=== PATIENT | female | born 1985 | race Caucasian/White ===

== ENCOUNTER → 2016-03-29 | Emergency (ER) | payer OTHER ==
[~2016-03-29] VITALS: Ht 154.9 cm; Wt 73.8 kg
[~2016-03-29] MED LIST: KEFLEX500 MG PO; LEVONO-E ESTRA1 EACH PO; MOTRIN800 MG PO; NOHOMEMEDS; PYRIDIUM100 MG PO
[2016-03-29 06:23] LABS: ADD MIUA? YES; BILIRUBIN NEGATIVE; BLOOD MODERATE; COLOR YELLOW ((YELLOW)); GLUCOSE (STRIP) 100; KETONES NEGATIVE; LEUKOCYTES MODERATE; NITRITE NEGATIVE; PROTEIN (STRIP) TRACE; SPECIFIC GRAVITY 1.029 (1.000-1.030)
[2016-03-29 06:29] LABS: BACTERIA RARE /HPF; EPITHELIAL CELLS 2+ /HPF; MUCUS 1+ /LPF; UCUL ADDED? YES; WHITE BLOOD CELLS TNTC /HPF (0-5)
[2016-03-29 06:36] LABS: HEMATOCRIT 37.7 % (36.0-46.0); MCH 28.9 PG (29.0-34.0); MCHC 34.2 G/DL (30.0-36.0); MCV 84.3 FL (83-99); MEAN PLAT.VOLUME 11.1 uM^3 (9.5-12.4); PLATELET COUNT 215 K/uL (156-360); RBC DIS.WIDTH-CV 15.1 % (11.8-14.6); RBC DIS.WIDTH-SD 46.2 % (39-53); RED BLOOD COUNT 4.47 M/uL (3.80-5.20); WHITE BLOOD COUNT 8.4 K/uL (4.1-10.2)
[2016-03-29 06:47] LABS: CHLORIDE 108 mEq/L (99-109)
[2016-03-29 06:48] LABS: POTASSIUM 3.9 mEq/L (3.7-5.4); SODIUM 141 mEq/L (136-147)
[2016-03-29 06:49] LABS: GLUCOSE 126 mg/dL (70-99)
[2016-03-29 06:51] LABS: ANION GAP 8 MEQ/L (2-14)
[2016-03-29 06:53] LABS: GFR ESTIMATE (CALCULATED) > 59 mL/min/
[2016-03-29 06:54] LABS: UREA NITROGEN (BUN) 11 mg/dL (9-23)
[2016-03-29 07:02] LABS: QUANTITATIVE HCG < 4.0 MIU/ML
[2016-03-29 07:32] VITALS: BP 156/98
== END | disposition home or self-care (01) ==
LOC: EME 05:56
DX: N39.0 Urinary tract infection, site not specified (principal); Z87.440 Personal history of urinary (tract) infections; F17.200 Nicotine dependence, unspecified, uncomplicated; Z71.6 Tobacco abuse counseling
CPT/HCPCS: 80048; 81003; 84702; 85027; 87077; 87086; 87186; 99281; 99284

== ENCOUNTER 2016-06-09 22:22 | Emergency (ER) | payer OTHER ==
[~2016-06-09] VITALS: Ht 154.9 cm; Wt 73.4 kg
[2016-06-09 23:32] LABS: HEMATOCRIT 37.9 % (36.0-46.0); MCH 29.4 PG (29.0-34.0); MCHC 34.3 G/DL (30.0-36.0); MCV 85.7 FL (83-99); MEAN PLAT.VOLUME 10.7 uM^3 (9.5-12.4); PLATELET COUNT 196 K/uL (156-360); RBC DIS.WIDTH-CV 14.1 % (11.8-14.6); RBC DIS.WIDTH-SD 43.8 % (39-53); RED BLOOD COUNT 4.42 M/uL (3.80-5.20); WHITE BLOOD COUNT 9.3 K/uL (4.1-10.2)
[2016-06-09 23:35] LABS: CHLORIDE 106 mEq/L (99-109); POTASSIUM 4.3 mEq/L (3.7-5.4); SODIUM 140 mEq/L (136-147)
[2016-06-09 23:37] LABS: GLUCOSE 87 mg/dL (70-99)
[2016-06-09 23:38] LABS: ANION GAP 9 MEQ/L (2-14)
[2016-06-09 23:40] LABS: GFR ESTIMATE (CALCULATED) > 59 mL/min/
[2016-06-09 23:41] LABS: UREA NITROGEN (BUN) 9 mg/dL (9-23)
[2016-06-10 00:12] LABS: QUANTITATIVE HCG 34328.8 MIU/ML
[2016-06-10 00:59] VITALS: BP 142/78
[2016-06-10 04:12] LABS: CANDIDA DNA PROBE NEGATIVE; GARDNERELLA DNA PROBE NEGATIVE; INTERNAL CONTROL VALID? YES
[2016-06-12 13:54] LABS: CHLAMYDIA TRACHOMATIS NEGATIVE; NEISSERIA GONORRHOEAE NEGATIVE
== END 2016-06-10 00:59 | disposition home or self-care (01) ==
LOC: EME 22:22
PROVIDERS: Emergency Medicine
DX: O20.9 Hemorrhage in early pregnancy, unspecified (principal); O99.331 Smoking (tobacco) complicating pregnancy, first trimester; F17.200 Nicotine dependence, unspecified, uncomplicated; Z3A.08 8 weeks gestation of pregnancy
CPT/HCPCS: 76801; 80048; 84702; 85027; 86900; 86901; 87210; 87480; 87491; 87510; 87591; 87660; 99281; 99283

== ENCOUNTER 2016-08-07 19:36 | Inpatient (IN) | payer OTHER ==
[~2016-08-07] VITALS: Ht 154.9 cm; Wt 68.8 kg
[2016-08-07 21:13] LABS: HEMATOCRIT 43.3 % (36.0-46.0); MCH 28.3 PG (29.0-34.0); MCHC 33.5 G/DL (30.0-36.0); MCV 84.6 FL (83-99); MEAN PLAT.VOLUME 10.8 uM^3 (9.5-12.4); PLATELET COUNT 181 K/uL (156-360); RBC DIS.WIDTH-CV 13.2 % (11.8-14.6); RBC DIS.WIDTH-SD 41.1 % (39-53); RED BLOOD COUNT 5.12 M/uL (3.80-5.20); WHITE BLOOD COUNT 6.7 K/uL (4.1-10.2)
[2016-08-07 21:27] LABS: CHLORIDE 108 mEq/L (99-109); POTASSIUM 4.6 mEq/L (3.7-5.4); SODIUM 138 mEq/L (136-147)
[2016-08-07 21:29] LABS: GLUCOSE 112 mg/dL (70-99)
[2016-08-07 21:30] LABS: ANION GAP 6 MEQ/L (2-14)
[2016-08-07 21:31] LABS: TOTAL BILIRUBIN 0.5 mg/dL (0.0-1.0)
[2016-08-07 21:32] LABS: SERUM ETHYL ALCOHOL < 10 mg/dL
[2016-08-07 21:33] LABS: ALKALINE PHOSPHATASE 58 IU/L (3-129); GFR ESTIMATE (CALCULATED) > 59 mL/min/
[2016-08-07 21:34] LABS: UREA NITROGEN (BUN) 8 mg/dL (9-23)
[2016-08-08 00:09] VITALS: BP 126/85
[2016-08-08 00:16] LABS: ADD MIUA? YES; BILIRUBIN NEGATIVE; BLOOD NEGATIVE; COLOR YELLOW ((YELLOW)); GLUCOSE (STRIP) NEGATIVE; KETONES 5; LEUKOCYTES TRACE; NITRITE NEGATIVE; PROTEIN (STRIP) 100; SPECIFIC GRAVITY 1.018 (1.000-1.030)
[2016-08-08 00:27] LABS: BACTERIA 2+ /HPF; EPITHELIAL CELLS 1+ /HPF; HYALINE CASTS 0-5 /LPF; MUCUS 3+ /LPF; RED BLOOD CELLS 0-5 /HPF (0-5); WHITE BLOOD CELLS 0-5 /HPF (0-5)
[2016-08-08 01:02] LABS: ADD MEDTOX COMMENT Y; AMPHETAMINE NEGATIVE (500 ng/mL); BARBITURATES NEGATIVE (200 ng/mL); BENZODIAZEPINES NEGATIVE (150 ng/mL); COCAINE NEGATIVE (150 ng/mL); INTERNAL CONTROLS VALID? YES; METHADONE NEGATIVE (200 ng/mL); METHAMPHETAMINE NEGATIVE (500 ng/mL); OPIATES (MORPHINE) PRESUMPTIVE POSITIVE (100 ng/mL); OXYCODONE NEGATIVE (100 ng/mL); PHENCYCLIDINE NEGATIVE (25 ng/mL); PROPOXYPHENE NEGATIVE (300 ng/mL); THC CANNABINOIDS NEGATIVE (50 ng/mL); TRICYCLIC ANTIDEPRESSANTS NEGATIVE (300 ng/mL)
[2016-08-08 07:28] VITALS: BP 143/81
[2016-08-08 15:43] VITALS: BP 111/64
[2016-08-08 23:30] VITALS: BP 109/71
[2016-08-09 07:24] VITALS: BP 102/63
[2016-08-09 15:48] VITALS: BP 110/79
[2016-08-10 00:14] VITALS: BP 122/77
[2016-08-10 07:49] VITALS: BP 91/62
[2016-08-10] MEDS ORDERED: LAMICTAL25 MG PO (11:23)
[2016-08-10] MEDS ORDERED: LAMICTAL100 MG PO (11:23)
== END 2016-08-10 12:03 | disposition other institution (70) | DRG 881 ==
LOC: EME 19:36 → EDOF 21:37 → 1WEST 21:37
PROVIDERS: Emergency Medicine
DX: F32.9 Major depressive disorder, single episode, unspecified (principal); R45.851 Suicidal ideations; F11.23 Opioid dependence with withdrawal; F10.20 Alcohol dependence, uncomplicated; Z91.5 Personal history of self-harm
CPT/HCPCS: 80053; 81003; 84999; 85027; 87086; 90839; 97150 GO; 97165 GO; 99281; 99285; G0480; Q0177